=== PATIENT | male | born 1980 | race African-American/Black ===

== ENCOUNTER 2021-09-27 13:42 | Emergency (ER) | payer MEDICAID ==
[~2021-09-27] VITALS: Ht 185.4 cm; Wt 71.8 kg
[2021-09-27 13:46] VITALS: BP 155/109
[2021-09-27] MEDS ORDERED: NAPR-1024 PO (15:25)
[2021-09-27] MEDS ORDERED: LIDO120C7 TP (15:26)
[2021-09-27] MEDS ORDERED: DICL100G51 TP (15:27)
== END 2021-09-27 15:43 | disposition home or self-care (01) ==
LOC: EMS 13:42
DX: M54.50 Low back pain, unspecified (principal); F12.90 Cannabis use, unspecified, uncomplicated; F17.210 Nicotine dependence, cigarettes, uncomplicated; Z91.013 Allergy to seafood
CPT/HCPCS: 99282; Z7502

== ENCOUNTER 2022-04-14 13:25 | Emergency (ER) | payer SELFPAY ==
[~2022-04-14] VITALS: Ht 185.4 cm; Wt 77.3 kg
[~2022-04-14 13:25] MED LIST: DICL100G51 TP; LIDO120C7 TP; NAPR-1024 PO
[2022-04-14] MEDS ORDERED: OXYC-38 PO (14:59)
[2022-04-14] MEDS ORDERED: OxyCODONE HCL/ACETAMINOPHEN 5-325 MG TABLET PO ONE (15:15)
[2022-04-14 15:30] VITALS: BP 141/76
== END 2022-04-14 15:30 | disposition home or self-care (01) ==
LOC: EMS 13:27
DX: K08.89 Other specified disorders of teeth and supporting structures (principal); F17.210 Nicotine dependence, cigarettes, uncomplicated; F12.90 Cannabis use, unspecified, uncomplicated; Z91.013 Allergy to seafood; Z98.890 Other specified postprocedural states
CPT/HCPCS: 99283

== ENCOUNTER 2023-01-24 13:44 | Emergency (ER) | payer MEDICAID ==
[~2023-01-24] VITALS: Ht 185.4 cm; Wt 72.7 kg
[~2023-01-24 13:44] MED LIST changes: -DICL100G51 TP; +DICL100G60 TP; +OXYC-38 PO
[2023-01-24 13:45] VITALS: TEMP 97.9
[2023-01-24] MEDS ORDERED: IBUP-1492 PO (13:58)
[2023-01-24] MEDS ORDERED: PENI500T2 PO (13:58)
[2023-01-24 14:11] VITALS: BP 151/110; PULSE 78; RESP 18
== END 2023-01-24 14:13 | disposition home or self-care (01) ==
LOC: EMS 13:56
DX: K13.79 Other lesions of oral mucosa (principal); K02.9 Dental caries, unspecified; R03.0 Elevated blood-pressure reading, without diagnosis of hypertension; F17.210 Nicotine dependence, cigarettes, uncomplicated; F12.90 Cannabis use, unspecified, uncomplicated; Z91.013 Allergy to seafood; Z98.890 Other specified postprocedural states
CPT/HCPCS: 99283; Z7502

== ENCOUNTER 2023-02-05 18:35 | Emergency (ER) | payer MEDICAID ==
[~2023-02-05] VITALS: Ht 185.4 cm; Wt 75.0 kg
[~2023-02-05 18:35] MED LIST changes: -DICL100G60 TP; +IBUP-1492 PO; -LIDO120C7 TP; -NAPR-1024 PO; -OXYC-38 PO; +PENI500T2 PO
[2023-02-05] MEDS ORDERED: AMOX500T2 PO (19:25)
[2023-02-05] MEDS ORDERED: IBUP-1554 PO (19:25)
[2023-02-05 19:30] VITALS: BP 126/65; PULSE 64; RESP 17; TEMP 98.1
== END 2023-02-05 20:00 | disposition home or self-care (01) ==
LOC: EMS 18:42
DX: K08.89 Other specified disorders of teeth and supporting structures (principal); F17.210 Nicotine dependence, cigarettes, uncomplicated; F12.90 Cannabis use, unspecified, uncomplicated; Z91.013 Allergy to seafood
CPT/HCPCS: 99283; Z7502

== ENCOUNTER 2025-02-17 22:56 | Emergency (ER) | payer SELFPAY ==
[~2025-02-17] VITALS: Ht 177.8 cm; Wt 84.1 kg
[~2025-02-17 22:56] MED LIST changes: +AMOX500T2 PO; +IBUP-1554 PO
[2025-02-17 23:05] VITALS: TEMP 98.4
[2025-02-18 00:06] VITALS: BP 124/80; PULSE 72; RESP 16; O2SAT 98
== END 2025-02-18 00:25 | disposition home or self-care (01) ==
LOC: EMS 23:26
DX: F41.9 Anxiety disorder, unspecified (principal); F12.90 Cannabis use, unspecified, uncomplicated; F17.210 Nicotine dependence, cigarettes, uncomplicated; Z98.890 Other specified postprocedural states; Z79.899 Other long term (current) drug therapy
CPT/HCPCS: 99282; Z7502

== ENCOUNTER 2025-02-24 22:08 | Emergency (ER) | payer SELFPAY ==
[~2025-02-24] VITALS: Ht 185.4 cm; Wt 74.5 kg
[2025-02-24 22:23] VITALS: BP 159/94; PULSE 68; RESP 16; TEMP 97.7; O2SAT 100
== END 2025-02-24 23:29 | disposition home or self-care (01) ==
LOC: EMS 22:08
DX: F43.20 Adjustment disorder, unspecified (principal); F12.90 Cannabis use, unspecified, uncomplicated; F17.210 Nicotine dependence, cigarettes, uncomplicated; Z98.890 Other specified postprocedural states; Z79.899 Other long term (current) drug therapy; Z91.013 Allergy to seafood; Z56.6 Other physical and mental strain related to work
CPT/HCPCS: 99282; Z7502